=== PATIENT | male | born 1995 ===

== ENCOUNTER 2017-11-26 10:55 | Emergency (ER) | payer OTHER ==
[~2017-11-26] VITALS: Ht 177.8 cm; Wt 127.0 kg
[~2017-11-26 10:55] MED LIST: TRAMADOL HCL-AP1 TAB PO
== END 2017-11-26 14:56 | disposition home or self-care (01) ==
LOC: ER 10:55
DX: S80.12XA Contusion of left lower leg, initial encounter (principal); W18.39XA Other fall on same level, initial encounter; Y93.89 Activity, other specified; Y92.89 Other specified places as the place of occurrence of the external cause; Y99.8 Other external cause status